=== PATIENT | male | born 1985 | race Hispanic/Latino ===

== ENCOUNTER 2020-12-27 09:22 | Emergency (ER) | payer SELFPAY ==
[~2020-12-27] VITALS: Ht 167.6 cm; Wt 95.0 kg
[2020-12-27] MEDS ORDERED: TAM75CAP PO (10:25)
[2020-12-27 10:30] VITALS: BP 118/68
== END 2020-12-27 10:30 | disposition home or self-care (01) | DRG 153 ==
LOC: ED 09:22
DX: J11.1 Influenza due to unidentified influenza virus with other respiratory manifestations (principal); Z20.822 Contact with and (suspected) exposure to COVID-19